=== PATIENT | female | born 1995 | race Asian ===

== ENCOUNTER 2018-12-05 17:26 | Emergency (ER) | payer MEDICAID ==
[~2018-12-05] VITALS: Ht 175.3 cm; Wt 105.8 kg
--- NOTE | 2018-12-05 17:46 | NUR ---
lab at bedside
[2018-12-05 17:59] VITALS: BP 130/62
[2018-12-05 17:59] LABS: BASOPHILS # (AUTO) 0.06 x10^3/uL (0-0.1); BASOPHILS % (AUTO) 1 % (0-1); EOSINOPHILS # (AUTO) 0.19 x10^3/uL (0-0.4); EOSINOPHILS % (AUTO) 2 % (1-7); LYMPHOCYTES % (AUTO) 29 % (22-44); MD NO; MEAN CORPUSCULAR HEMOGLOBIN 27.5 pg (27.0-34.8); MEAN CORPUSCULAR HGB CONC 33.2 g/dL (32.4-35.8); MEAN CORPUSCULAR VOLUME 82.8 fL (80-100); MEAN PLATELET VOLUME 8.1 fL (7.4-10.4); MONOCYTES # (AUTO) 0.64 x10^3/uL (0.2-0.8); MONOCYTES % (AUTO) 8 % (2-9); NEUTROPHILS # (AUTO) 5.14 x10^3/uL (1.8-6.8); NEUTROPHILS % (AUTO) 61 % (42-75); PLATELET COUNT 409 x10^3/uL (130-400); RED CELL DISTRIBUTION WIDTH 13.2 % (9.6-15.2)
--- NOTE | 2018-12-05 17:59 | NUR ---
pt to ed for n/v/ and abd pain radiating to bilat flank/lower back x 5 days. pt amb to restroom with steady gait. ua collected and sent. labs drawn. connected to monitors. vss. awaiting md assessment.
[2018-12-05 18:11] LABS: ALANINE AMINOTRANSFERASE 29 U/L (12-78); ALBUMIN 4.1 g/dL (3.4-5.0); ANION GAP 4 mmol/L (5-15); CALCIUM 9.1 mg/dL (8.5-10.1); CHLORIDE 110 mmol/L (98-107); CREATININE 0.67 mg/dL (0.55-1.02)
[2018-12-05 18:16] LABS: ALKALINE PHOSPHATASE 70 U/L (45-117); BILIRUBIN,TOTAL 0.3 mg/dL (0.2-1.0); TOTAL PROTEIN 8.3 g/dL (6.4-8.2)
[2018-12-05 18:18] LABS: MICROSCOPIC INDICATED
--- NOTE | 2018-12-05 18:26 | NUR ---
pa to bedside. additional orders received. awaiting rad. pt resting in room wtih friend at bedside. call light within reach. no needs at this time.
[2018-12-05 18:28] LABS: CULTURE INDICATED? NO
[2018-12-05] MEDS ORDERED: MAGNESIUM CITRATE 300ML ORAL SOL PO ONE (19:00)
[2018-12-05] MEDS ORDERED: MAGNESIUM CITRATE 300ML ORAL SOL ONE (19:04)
== END 2018-12-05 20:05 | disposition home or self-care (01) ==
LOC: ED 19:42
DX: K59.00 Constipation, unspecified (principal); R11.2 Nausea with vomiting, unspecified
CPT/HCPCS: 36415; 74021; 80053; 81001; 83690; 84703; 85025; 99284